=== PATIENT | female | born 1970 | race Caucasian/White ===

== ENCOUNTER 2019-10-10 19:54 | Emergency (ER) | payer MEDICAID ==
[~2019-10-10] VITALS: Ht 167.6 cm; Wt 60.0 kg
[2019-10-10 20:01] VITALS: BP 107/75
--- NOTE | 2019-10-10 20:35 | NUR ---
SECURITY CALLED PER PROVIDER REQUEST TO [facility].
== END 2019-10-10 20:42 | disposition home or self-care (01) ==
LOC: ED 19:55
DX: M79.604 Pain in right leg (principal)
CPT/HCPCS: 99281

== ENCOUNTER 2019-11-08 12:54 | Inpatient (IN) | payer MEDICAID ==
[~2019-11-08] VITALS: Ht 167.6 cm; Wt 62.2 kg
[2019-11-08 14:00] VITALS: BP 97/73
[2019-11-08] MEDS ORDERED: PLEASE ENTER HEIGHT AND WEIGHT MC SCH (14:23)
[2019-11-08] MEDS ORDERED: POLYETHYLENE GLYCOL 17 GM PACKET PO PRN (14:30)
[2019-11-08] MEDS ORDERED: THIAMINE 100MG TABLET PO ONE (15:00)
[2019-11-08 15:31] LABS: BASOPHILS # (AUTO) 0.05 x10^3/uL (0-0.1); BASOPHILS % (AUTO) 1 % (0-1); EOSINOPHILS # (AUTO) 0.11 x10^3/uL (0-0.4); EOSINOPHILS % (AUTO) 1 % (1-7); LYMPHOCYTES # (AUTO) 2.98 x10^3/uL (1-3.4); LYMPHOCYTES % (AUTO) 32 % (22-44); MD NO; MEAN CORPUSCULAR HEMOGLOBIN 30.9 pg (27.0-34.8); MEAN CORPUSCULAR HGB CONC 32.6 g/dL (32.4-35.8); MEAN CORPUSCULAR VOLUME 94.5 fL (80-100); MEAN PLATELET VOLUME 7.8 fL (7.4-10.4); MONOCYTES # (AUTO) 0.64 x10^3/uL (0.2-0.8); MONOCYTES % (AUTO) 7 % (2-9); NEUTROPHILS # (AUTO) 5.52 x10^3/uL (1.8-6.8); NEUTROPHILS % (AUTO) 59 % (42-75); PLATELET COUNT 326 x10^3/uL (130-400); RED BLOOD COUNT 4.45 x10^6/uL (3.82-5.3)
[2019-11-08 15:38] LABS: ALBUMIN 3.1 g/dL (3.4-5.0); ANION GAP 5 mmol/L (5-15); CALCIUM 8.6 mg/dL (8.5-10.1); CHLORIDE 106 mmol/L (98-107)
[2019-11-08 15:46] LABS: CHOL/HDL RATIO 3.8; LDL/HDL RATIO 1.5 (0.5-3.0)
[2019-11-08 16:05] LABS: ALANINE AMINOTRANSFERASE 89 U/L (12-78); ALKALINE PHOSPHATASE 96 U/L (45-117); BILIRUBIN,TOTAL 0.2 mg/dL (0.2-1.0); CREATININE 1.16 mg/dL (0.55-1.02); FREE T4 (FREE THYROXINE) 0.86 ng/dL (0.76-1.46); TOTAL PROTEIN 8.3 g/dL (6.4-8.2)
[2019-11-08] MEDS: NICOTINE 14MG/24 HR PATCH.TD24 TD SCH (16:31)
[2019-11-08 17:14] LABS: MICROSCOPIC NOT IND
[2019-11-08] MEDS ORDERED: FLUO20CA19 PO (17:26)
[2019-11-08] MEDS ORDERED: OLAN20TA3 PO (17:26)
[2019-11-08] MEDS ORDERED: DIVA250T4 PO (17:31)
[2019-11-08] MEDS ORDERED: TRAZ-175 PO (17:31)
[2019-11-08] MEDS: TRAZODONE 100MG TABLET PO SCH (20:03)
[2019-11-08] MEDS: ACETAMINOPHEN 325 MG TABLET PO PRN (20:03)
[2019-11-08] MEDS: DOCUSATE 100 MG CAPSULE PO PRN (20:03)
[2019-11-08 20:05] VITALS: BP 105/75
[2019-11-09 07:42] VITALS: BP 93/61
[2019-11-09] MEDS: MULTIVITAMINS/MINERALS TABLET PO SCH (09:56)
[2019-11-09] MEDS: ACETAMINOPHEN 325 MG TABLET PO PRN (10:02)
[2019-11-09] MEDS: DOCUSATE 100 MG CAPSULE PO PRN (10:02)
[2019-11-09] MEDS ORDERED: OLANZAPINE 10 MG TABLET PO ONE (15:00)
[2019-11-09] MEDS ORDERED: DIVALPROEX 250 MG TABLET.DR ONE (15:02)
[2019-11-09] MEDS ORDERED: OLANZAPINE 10 MG TABLET ONE (15:03)
[2019-11-09] MEDS ORDERED: FLUOXETINE HCL 20 MG CAPSULE ONE (15:03)
[2019-11-09] MEDS: DIVALPROEX 250 MG TABLET.DR PO SCH ×2 (15:06→20:15)
[2019-11-09] MEDS: FLUOXETINE HCL 20 MG CAPSULE PO SCH (15:06)
[2019-11-09] MEDS: NICOTINE 14MG/24 HR PATCH.TD24 TD SCH (15:07)
[2019-11-09 19:45] VITALS: BP 101/63
[2019-11-09] MEDS: OLANZAPINE 10 MG TABLET PO SCH (20:15)
[2019-11-09] MEDS: TRAZODONE 100MG TABLET PO SCH (20:15)
[2019-11-10 07:37] VITALS: BP 97/72
[2019-11-10] MEDS: MULTIVITAMINS/MINERALS TABLET PO SCH (08:16)
[2019-11-10] MEDS: DIVALPROEX 250 MG TABLET.DR PO SCH ×2 (08:16→20:10)
[2019-11-10] MEDS: FLUOXETINE HCL 20 MG CAPSULE PO SCH (08:16)
[2019-11-10 15:05] LABS: ALANINE AMINOTRANSFERASE 88 U/L (12-78); ANION GAP 4 mmol/L (5-15); CALCIUM 8.8 mg/dL (8.5-10.1); CHLORIDE 108 mmol/L (98-107); CREATININE 0.78 mg/dL (0.55-1.02)
[2019-11-10 15:07] LABS: ALKALINE PHOSPHATASE 87 U/L (45-117); BILIRUBIN,TOTAL 0.2 mg/dL (0.2-1.0); TOTAL PROTEIN 7.8 g/dL (6.4-8.2)
[2019-11-10] MEDS: NICOTINE 14MG/24 HR PATCH.TD24 TD SCH (16:10)
[2019-11-10 19:54] VITALS: BP 101/67
[2019-11-10] MEDS: OLANZAPINE 10 MG TABLET PO SCH (20:10)
[2019-11-10] MEDS: ACETAMINOPHEN 325 MG TABLET PO PRN (20:10)
[2019-11-10] MEDS: TRAZODONE 100MG TABLET PO SCH (20:10)
[2019-11-11 07:54] VITALS: BP 95/60
[2019-11-11] MEDS: FLUOXETINE HCL 20 MG CAPSULE PO SCH (09:31)
[2019-11-11] MEDS: MULTIVITAMINS/MINERALS TABLET PO SCH (09:31)
[2019-11-11] MEDS: DIVALPROEX 250 MG TABLET.DR PO SCH ×2 (09:31→20:18)
[2019-11-11] MEDS: NICOTINE 14MG/24 HR PATCH.TD24 TD SCH (16:51)
[2019-11-11] MEDS: ACETAMINOPHEN 325 MG TABLET PO PRN (19:30)
[2019-11-11 19:53] VITALS: BP 105/60
[2019-11-11] MEDS: OLANZAPINE 10 MG TABLET PO SCH (20:18)
[2019-11-11] MEDS: TRAZODONE 100MG TABLET PO SCH (20:18)
[2019-11-12 07:20] VITALS: BP 111/71
[2019-11-12] MEDS: MULTIVITAMINS/MINERALS TABLET PO SCH (08:40)
[2019-11-12] MEDS: DIVALPROEX 250 MG TABLET.DR PO SCH ×2 (08:40→20:38)
[2019-11-12] MEDS: FLUOXETINE HCL 20 MG CAPSULE PO SCH (08:40)
[2019-11-12] MEDS: NICOTINE 14MG/24 HR PATCH.TD24 TD SCH (17:11)
[2019-11-12] MEDS: HYDROXYZINE PAMOATE 50MG CAP PO PRN (17:11)
[2019-11-12 19:46] VITALS: BP 96/61
[2019-11-12] MEDS: TRAZODONE 100MG TABLET PO SCH (20:38)
[2019-11-12] MEDS: OLANZAPINE 10 MG TABLET PO SCH (20:38)
[2019-11-12] MEDS: ACETAMINOPHEN 325 MG TABLET PO PRN (20:38)
[2019-11-12 21:04] VITALS: BP 103/62
[2019-11-13 07:22] VITALS: BP 108/75
[2019-11-13] MEDS: HYDROXYZINE PAMOATE 50MG CAP PO PRN ×2 (09:06→17:13)
[2019-11-13] MEDS: FLUOXETINE HCL 20 MG CAPSULE PO SCH (09:06)
[2019-11-13] MEDS: MULTIVITAMINS/MINERALS TABLET PO SCH (09:06)
[2019-11-13] MEDS: DIVALPROEX 250 MG TABLET.DR PO SCH ×2 (09:06→20:46)
[2019-11-13] MEDS: ACETAMINOPHEN 325 MG TABLET PO PRN ×2 (09:07→20:46)
[2019-11-13] MEDS: NICOTINE 14MG/24 HR PATCH.TD24 TD SCH (16:06)
[2019-11-13 19:05] VITALS: BP 91/60
[2019-11-13] MEDS: OLANZAPINE 10 MG TABLET PO SCH (20:46)
[2019-11-13] MEDS: TRAZODONE 100MG TABLET PO SCH (20:46)
[2019-11-13 23:06] VITALS: BP 115/70
[2019-11-14 07:50] VITALS: BP 100/62
[2019-11-14] MEDS: DIVALPROEX 250 MG TABLET.DR PO SCH (08:16)
[2019-11-14] MEDS: FLUOXETINE HCL 20 MG CAPSULE PO SCH (08:16)
[2019-11-14] MEDS: MULTIVITAMINS/MINERALS TABLET PO SCH (08:16)
[2019-11-14] MEDS ORDERED: FLUO20CA23 PO (12:19)
[2019-11-14] MEDS ORDERED: HYDR50CA2 PO (12:19)
[2019-11-14] MEDS ORDERED: TRAZ-175 PO (12:19)
[2019-11-14] MEDS ORDERED: DIVA-59 PO (12:19)
[2019-11-14] MEDS ORDERED: NICO-486 TD (12:19)
[2019-11-14] MEDS ORDERED: OLAN10TA9 PO (12:19)
[2019-11-14] MEDS: NICOTINE 14MG/24 HR PATCH.TD24 TD SCH ×2 (15:00→15:12)
== END 2019-11-14 16:15 | disposition home or self-care (01) | DRG 750 ==
LOC: 3E 13:40
PROVIDERS: ADMIT Psychiatry & Neurology Psychosomatic Medicine; ATTEND Psychiatry & Neurology Psychosomatic Medicine
DX: F20.0 Paranoid schizophrenia (principal); F31.9 Bipolar disorder, unspecified; F17.200 Nicotine dependence, unspecified, uncomplicated; R45.851 Suicidal ideations; F15.90 Other stimulant use, unspecified, uncomplicated; F10.10 Alcohol abuse, uncomplicated
CPT/HCPCS: 36415; 71045; 76700; 80053; 80061; 81003; 82607; 84439; 84443; 85025

== ENCOUNTER 2020-08-22 19:35 | Observation (INO) | payer MEDICAID ==
[~2020-08-22] VITALS: Ht 167.6 cm; Wt 53.8 kg
[~2020-08-22 19:35] MED LIST: DIVA-59 PO; DIVA250T4 PO; FLUO20CA19 PO; FLUO20CA23 PO; HYDR50CA2 PO; NICO-486 TD; OLAN10TA9 PO; OLAN20TA3 PO; TRAZ-175 PO
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
[2020-08-22 21:00] LABS: BASOPHILS % (AUTO) 1 % (0-1); EOSINOPHILS % (AUTO) 1 % (1-7); LYMPHOCYTES % (AUTO) 30 % (22-44); MEAN CORPUSCULAR HEMOGLOBIN 31.5 pg (27.0-34.8); MEAN CORPUSCULAR HGB CONC 34.4 g/dL (32.4-35.8); MEAN PLATELET VOLUME 8.2 fL (7.4-10.4); MONOCYTES % (AUTO) 8 % (2-9); NEUTROPHILS % (AUTO) 60 % (42-75); PLATELET COUNT 392 x10^3/uL (130-400); RED BLOOD COUNT 4.64 x10^6/uL (3.82-5.3); RED CELL DISTRIBUTION WIDTH 13.6 % (9.6-15.2)
[2020-08-22 21:06] LABS: MD NO
--- NOTE | 2020-08-22 21:06 | NUR ---
SITTING IN BED TALKING TO SELF. SITTER IN PLACE.
[2020-08-22 21:11] LABS: ANION GAP 7 mmol/L (5-15); CALCIUM 9.5 mg/dL (8.5-10.1); CHLORIDE 104 mmol/L (98-107); CREATININE 1.34 mg/dL (0.55-1.02)
[2020-08-22 21:12] LABS: SALICYLATE LEVEL < 1.7 mg/dL (2.8-20.0)
[2020-08-22] MEDS ORDERED: ZIPRASIDONE 20 MG INJ IM ONE ×3 (21:56→23:00)
--- NOTE | 2020-08-22 22:03 | NUR ---
PT GETTING AGITATED, WALKING AROUND LEAVING ROOM. YA PER MAR IM. GIVEN CEREAL. COOPERATIVE.
--- NOTE | 2020-08-22 22:49 | NUR ---
report to lillie bee. as
--- NOTE | 2020-08-22 23:10 | NUR ---
Pt sleeping at this time, no acute distress noted. Room secured, sitter at doorway. Will cont to monitor.
--- NOTE | 2020-08-23 00:22 | NUR ---
Pt cont to sleep, no acute distress noted. Room secured and sitter at doorway.
--- NOTE | 2020-08-23 03:00 | NUR ---
Pt sleeping on [facility], sitter in doorway for observation. Will cont to monitor. Sitter informed of need of urine sampleif pt wakes up.
--- NOTE | 2020-08-23 04:03 | NUR ---
Pt easily awakens for vital signs, denies any needs at this time. Pt asked if she needed to use the restroom and pt rolled over on the gurney. Reminded pt of need of urine sample. VSS, door closed for comfort sleeping. Sitter at doorway.
--- NOTE | 2020-08-23 05:14 | NUR ---
[facility] RPT REC'D AND ASSUMED PT CARE. PT SLEEPING ON [facility]OSPITAL [place], RESP EVEN AND NON-LABORED, NAD NOTED. ROOM SECURE AND SITTER IN HALLWAY WITH PT IN DIRECT VIEW.
--- NOTE | 2020-08-23 06:00 | NUR ---
PT CONTINUES SLEEPING, RESP EVEN, NON-LABORED. SITTER IN HALLWAY WITH PT IN VIEW
--- NOTE | 2020-08-23 06:56 | NUR ---
REPORT RECEIVED FROM JARET DANG FOR TRANSFER OF PATIENT CARE.
--- NOTE | 2020-08-23 07:02 | NUR ---
PATIENT RESTING IN GURNEY, EYES CLOSED, RESP EVEN AND UNLABORED, SUICIDE PRECAUTIONS IN PLACE, SITTER IN LINE OF SIGHT.
--- NOTE | 2020-08-23 08:48 | NUR ---
URINE COLLECTED AND SENT TO LAB.
[2020-08-23 09:12] VITALS: BP 101/60
--- NOTE | 2020-08-23 09:13 | NUR ---
BREAKFAST TRAY PROVIDED TO PATIENT, VSS, SUICIDE PRECAUTIONS IN PLACE, SITTER IN LINE OF SIGHT.
--- NOTE | 2020-08-23 09:19 | NUR ---
PATIENT PLACED ON HOSPITAL BED.
--- NOTE | 2020-08-23 09:57 | NUR ---
WATER AND SNACKS PROVIDED TO PATIENT, SUICIDE PRECAUTIONS IN PLACE, SITTER IN LINE OF SIGHT.
--- NOTE | 2020-08-23 10:35 | NUR ---
PATIENT ASKING FOR HER CLOTHES, INFORMED PATIENT SHE CANNOT HAVE HER CLOTHES RIGHT NOW. PATIENT YELLED "NO CLOTHES RIGHT NOW," AND LAID ON THE HOSPITAL BED AND COVERED HER HEAD WITH HER BLANKET. SUICIDE PRECAUTIONS IN PLACE, SITTER IN LINE OF SIGHT.
--- NOTE | 2020-08-23 11:01 | NUR ---
PATIENT SCREAMING THAT SHE WANTS HER CLOTHES, INFORMED PATIENT WE CAN'T GIVE HER CLOTHES BACK AT THIS TIME. PATIENT SCREAMING AND CRYING, ASKED PATIENT IF SHE WOULD LIKE A SPRITE, PROVIDED PATIENT WITH SPRITE AND PATIENT CALMED DOWN. SITTER IN LINE OF SIGHT.
[2020-08-23] MEDS ORDERED: ZIPRASIDONE 20 MG INJ IM ONE ×2 (11:05→11:30)
--- NOTE | 2020-08-23 11:12 | NUR ---
PATIENT SCREAMING THAT SHE WANTS HER CLOTHES, PATIENT UNCOSOLABLE, YELLING AT SITTER. PATIENT MEDICATED PER eMAR.
--- NOTE | 2020-08-23 12:16 | NUR ---
PATIENT RESTING IN HOSPITAL BED WITH EYES CLOSED, RESP EVEN AND UNLABORED, SUICIDE PRECAUTIONS IN PLACE, SITTER IN LINE OF SIGHT.
[2020-08-23] MEDS ORDERED: OLANZAPINE 10 MG INJ IM PRN (12:30)
[2020-08-23] MEDS ORDERED: FLUOXETINE 10 MG CAP PO SCH (12:30)
[2020-08-23] MEDS ORDERED: hydrOXyzine 50MG TABLET PO PRN (12:30)
--- NOTE | 2020-08-23 12:57 | NUR ---
LUNCH TRAY PROVIDED TO PATIENT, PATIENT SLEEPING AT THIS TIME.
--- NOTE | 2020-08-23 13:03 | NUR ---
SPOKE WITH LAB, URINE NOT RESULTED YET AND WAS SENT AT 0848 THIS MORNING. REAL ESTATE LEASING MANAGER STATES URINE NEVER RECEIVED. NEED TO RECOLLECT URINE.
--- NOTE | 2020-08-23 13:08 | NUR ---
URINE SAMPLE TAKEN FROM URINE LEFT THIS MORNING AND RESENT TO LAB.
--- NOTE | 2020-08-23 13:34 | NUR ---
PATIENT RESTING IN HOSPITAL BED, EYES CLOSED, RESP EVEN AND UNLABORED, SUICIDE PRECAUTIONS IN PLACE, SITTER IN LINE OF SIGHT.
--- NOTE | 2020-08-23 14:03 | NUR ---
SPOKE WITH LAB AGAIN ABOUT URINE, ONLY TOX SCREEN IS RUNNING, UA WAS ORDERED LAST NIGHT WELL. LAB WILL RUN UA.
[2020-08-23 14:05] LABS: AMPHETAMINE SCREEN, URINE Positive (Negative); BARBITURATE SCREEN, URINE Negative (Negative); BENZODIAZEPINE SCREEN, URINE Negative (Negative); CANNABINOID SCREEN, URINE Negative (Negative); COCAINE SCREEN, URINE Positive (Negative); METHADONE SCREEN, URINE Negative (Negative); OPIATE SCREEN, URINE Negative (Negative)
[2020-08-23 14:26] LABS: MICROSCOPIC INDICATED
--- NOTE | 2020-08-23 14:59 | NUR ---
PATIENT RESTING IN HOSPITAL BED WITH EYES CLOSED, RESP EVEN AND UNLABORED, SUICIDE PRECAUTIONS IN PLACE, SITTER IN LINE OF SIGHT.
[2020-08-23] MEDS ORDERED: FLUOXETINE HCL 20 MG CAPSULE ONE (15:07)
--- NOTE | 2020-08-23 15:13 | NUR ---
PATIENT SITTING UP IN [facility] EATING LUNCH TRAY, MEDICATED PER eMAR, SUICIDE PRECAUTIONS IN PLACE, SITTER IN LINE OF SIGHT.
--- NOTE | 2020-08-23 15:19 | NUR ---
EKATERINA GOLDMAN AT BEDSIDE FOR EVALUATION.
[2020-08-23] MEDS ORDERED: FLUO10CA15 PO (15:49)
[2020-08-23] MEDS ORDERED: OLAN5TAB9 PO (15:49)
[2020-08-23] MEDS ORDERED: DIVA-59 PO (15:49)
--- NOTE | 2020-08-23 16:16 | NUR ---
PATIENT RESTING IN HOSPITAL BED, EYES CLOSED, RESP EVEN AND UNLABORED, SUICIDE PRECAUTIONS IN PLACE, SITTER IN LINE OF SIGHT. WAITING FOR DISHCHARGE PAPERWORK.
--- NOTE | 2020-08-23 16:48 | NUR ---
L2K d/c'd. Patient given discharge instructions and prescriptions and they have confirmed that they understand the instructions. All patient belongings taken from locked cabinet and taken with patient. Patient stable and ambulatory with steady gait from ED.
[2020-08-23] MEDS ORDERED: DIVALPROEX 250 MG TABLET.DR PO SCH (21:00)
[2020-08-23] MEDS ORDERED: OLANZAPINE 5 MG TABLET PO SCH (21:00)
== END 2020-08-23 15:51 | disposition home or self-care (01) ==
LOC: ED 21:14 → EDIP 08-23 03:10 → INTOOBSV 08-23 03:21 → UNDOADMOB 08-23 03:21 → EDIP 08-23 03:21
PROVIDERS: ADMIT Emergency Medicine; ATTEND Emergency Medicine
DX: F20.0 Paranoid schizophrenia (principal); F32.9 Major depressive disorder, single episode, unspecified; F17.200 Nicotine dependence, unspecified, uncomplicated; R45.851 Suicidal ideations; F14.90 Cocaine use, unspecified, uncomplicated; F15.90 Other stimulant use, unspecified, uncomplicated; F20.1 Disorganized schizophrenia; Z91.14 Patient's other noncompliance with medication regimen; Z59.0 Homelessness; Z79.899 Other long term (current) drug therapy
CPT/HCPCS: 36415; 80048; 80299; 80307; 80320; 80329; 81001; 82040; 85025; 96372; 99284; G0378; J3486; 99285; G0480

== ENCOUNTER 2020-10-12 07:55 | Inpatient (IN) | payer MEDICAID ==
[~2020-10-12] VITALS: Ht 162.6 cm; Wt 61.3 kg
[~2020-10-12 07:55] MED LIST changes: +FLUO10CA15 PO; +OLAN5TAB9 PO
[2020-10-12] MEDS ORDERED: ONDANSETRON ODT 4 MG PO PRN (10:00)
[2020-10-12] MEDS ORDERED: POLYETHYLENE GLYCOL 17 GM PACKET PO PRN (10:00)
[2020-10-12] MEDS ORDERED: BISACODYL 10 MG SUPP PR PRN (10:00)
[2020-10-12] MEDS ORDERED: PLEASE ENTER HEIGHT AND WEIGHT MC SCH (11:30)
[2020-10-12] MEDS ORDERED: NICOTINE 14MG/24 HR PATCH.TD24 ONE (11:53)
[2020-10-12] MEDS: NICOTINE 14MG/24 HR PATCH.TD24 TD SCH (11:55)
[2020-10-12 12:30] VITALS: BP 113/71
[2020-10-12 12:55] LABS: BASOPHILS % (AUTO) 1 % (0-1); EOSINOPHILS % (AUTO) 2 % (1-7); LYMPHOCYTES % (AUTO) 37 % (22-44); MEAN CORPUSCULAR HEMOGLOBIN 31.7 pg (27.0-34.8); MONOCYTES % (AUTO) 4 % (2-9); NEUTROPHILS % (AUTO) 56 % (42-75); PLATELET COUNT 279 x10^3/uL (130-400); RED BLOOD COUNT 4.31 x10^6/uL (3.82-5.3); RED CELL DISTRIBUTION WIDTH 13.9 % (9.6-15.2)
[2020-10-12 13:01] LABS: ALANINE AMINOTRANSFERASE 73 U/L (12-78); ALBUMIN 3.2 g/dL (3.4-5.0); ANION GAP 9 mmol/L (5-15); CALCIUM 8.3 mg/dL (8.5-10.1); CHLORIDE 109 mmol/L (98-107); CREATININE 1.14 mg/dL (0.55-1.02)
[2020-10-12 13:11] LABS: ALKALINE PHOSPHATASE 74 U/L (45-117); BILIRUBIN,TOTAL 0.3 mg/dL (0.2-1.0); FREE T4 (FREE THYROXINE) 0.79 ng/dL (0.76-1.46); TOTAL PROTEIN 7.9 g/dL (6.4-8.2)
[2020-10-12] MEDS ORDERED: HYDR50CA PO (15:18)
[2020-10-12] MEDS ORDERED: FLUO10CA13 PO (15:18)
[2020-10-12] MEDS ORDERED: SERT50TA PO (15:18)
[2020-10-12] MEDS ORDERED: OLAN10TA3 PO (15:18)
[2020-10-12] MEDS ORDERED: ERGO500017 PO (15:18)
[2020-10-12] MEDS ORDERED: TRAZ-175 PO (15:18)
[2020-10-12] MEDS ORDERED: ERGOCALCIFEROL 50,000 UNIT CAPSULE PO SCH (16:00)
[2020-10-12] MEDS: HYDROXYZINE PAMOATE 50MG CAP PO PRN (16:53)
[2020-10-12 19:35] VITALS: BP 100/70
[2020-10-12] MEDS: OLANZAPINE 10 MG TABLET PO SCH (20:24)
[2020-10-12] MEDS: ACETAMINOPHEN 325 MG TABLET PO PRN (20:24)
[2020-10-12] MEDS: TRAZODONE 100MG TABLET PO PRN (20:50)
[2020-10-13 06:05] LABS: CHOL/HDL RATIO 2.9; LDL/HDL RATIO 1.6 (0.5-3.0)
[2020-10-13 07:33] VITALS: BP 92/63
[2020-10-13] MEDS: FLUOXETINE 10 MG CAP PO SCH (08:33)
[2020-10-13] MEDS: NICOTINE 14MG/24 HR PATCH.TD24 TD SCH (08:34)
[2020-10-13 09:35] LABS: MICROSCOPIC NOT IND
[2020-10-13] MEDS: HYDROXYZINE PAMOATE 50MG CAP PO PRN (19:56)
[2020-10-13] MEDS: DOCUSATE 100 MG CAPSULE PO PRN (19:56)
[2020-10-13] MEDS: OLANZAPINE 10 MG TABLET PO SCH (19:57)
[2020-10-13] MEDS: ACETAMINOPHEN 325 MG TABLET PO PRN (19:57)
[2020-10-13 20:01] VITALS: BP 97/65
[2020-10-14 07:44] VITALS: BP 106/74
[2020-10-14] MEDS: FLUOXETINE 10 MG CAP PO SCH (09:09)
[2020-10-14] MEDS: NICOTINE 14MG/24 HR PATCH.TD24 TD SCH (09:11)
[2020-10-14] MEDS: DOCUSATE 100 MG CAPSULE PO PRN (09:43)
[2020-10-14] MEDS: HYDROXYZINE PAMOATE 50MG CAP PO PRN ×2 (09:43→20:10)
[2020-10-14] MEDS: ACETAMINOPHEN 325 MG TABLET PO PRN ×2 (09:43→17:18)
[2020-10-14 19:31] VITALS: BP 102/69
[2020-10-14] MEDS: OLANZAPINE 10 MG TABLET PO SCH (20:11)
[2020-10-15 07:32] LABS: ANION GAP 5 mmol/L (5-15); CALCIUM 9.4 mg/dL (8.5-10.1); CHLORIDE 110 mmol/L (98-107); CREATININE 0.87 mg/dL (0.55-1.02)
[2020-10-15 07:36] VITALS: BP 140/84
[2020-10-15] MEDS: NICOTINE 14MG/24 HR PATCH.TD24 TD SCH (08:34)
[2020-10-15] MEDS: FLUOXETINE 10 MG CAP PO SCH (08:34)
[2020-10-15 20:10] VITALS: BP 105/72
[2020-10-15] MEDS: OLANZAPINE 10 MG TABLET PO SCH (21:07)
[2020-10-15] MEDS: ACETAMINOPHEN 325 MG TABLET PO PRN (21:07)
[2020-10-15] MEDS: HYDROXYZINE PAMOATE 50MG CAP PO PRN (21:07)
[2020-10-16 07:26] VITALS: BP 97/64
[2020-10-16] MEDS: FLUOXETINE 10 MG CAP PO SCH (08:42)
[2020-10-16] MEDS: NICOTINE 14MG/24 HR PATCH.TD24 TD SCH (08:43)
[2020-10-16] MEDS ORDERED: COVID-19 VAC,AD26(JANSSEN)/PF 0.5ML IM-VACC ONE (14:30)
[2020-10-16] MEDS: ACETAMINOPHEN 325 MG TABLET PO PRN (18:26)
[2020-10-16 19:35] VITALS: BP 110/74
[2020-10-16] MEDS: OLANZAPINE 10 MG TABLET PO SCH (20:45)
[2020-10-16] MEDS: TRAZODONE 100MG TABLET PO PRN (20:52)
[2020-10-17 07:14] VITALS: BP 98/64
[2020-10-17] MEDS: HYDROXYZINE PAMOATE 50MG CAP PO PRN ×2 (08:01→13:35)
[2020-10-17] MEDS: NICOTINE 14MG/24 HR PATCH.TD24 TD SCH (08:01)
[2020-10-17] MEDS: FLUOXETINE 10 MG CAP PO SCH (08:01)
[2020-10-17] MEDS: ACETAMINOPHEN 325 MG TABLET PO PRN ×2 (13:35→20:37)
[2020-10-17 19:41] VITALS: BP 104/72
[2020-10-17] MEDS: OLANZAPINE 10 MG TABLET PO SCH (20:37)
[2020-10-17] MEDS: TRAZODONE 100MG TABLET PO PRN (20:37)
[2020-10-18 07:28] VITALS: BP 99/58
[2020-10-18] MEDS: FLUOXETINE 10 MG CAP PO SCH (08:27)
[2020-10-18] MEDS: NICOTINE 14MG/24 HR PATCH.TD24 TD SCH (08:27)
[2020-10-18] MEDS: HYDROXYZINE PAMOATE 50MG CAP PO PRN (11:44)
[2020-10-18] MEDS: ACETAMINOPHEN 325 MG TABLET PO PRN (11:44)
[2020-10-18] MEDS ORDERED: ERGO500017 PO (14:23)
[2020-10-18] MEDS ORDERED: HYDR50CA2 PO (14:23)
[2020-10-18] MEDS ORDERED: NICO-486 TD (14:23)
[2020-10-18] MEDS ORDERED: FLUO10CA15 PO (14:23)
[2020-10-18] MEDS ORDERED: TRAZ-175 PO (14:23)
[2020-10-18] MEDS ORDERED: OLAN10TA9 PO (14:23)
== END 2020-10-18 15:30 | disposition home or self-care (01) | DRG 885 ==
LOC: 3E 11:10
PROVIDERS: ADMIT Psychiatry & Neurology Psychosomatic Medicine; ATTEND Psychiatry & Neurology Psychosomatic Medicine
DX: F25.0 Schizoaffective disorder, bipolar type (principal); E87.2 Acidosis; R45.851 Suicidal ideations; F15.20 Other stimulant dependence, uncomplicated; E86.0 Dehydration; F41.9 Anxiety disorder, unspecified; Z79.899 Other long term (current) drug therapy; Z90.49 Acquired absence of other specified parts of digestive tract; Z23 Encounter for immunization
CPT/HCPCS: 36415; 71045; 80048; 80053; 80061; 81003; 84439; 84443; 85025; 91303; 93005

== ENCOUNTER 2020-10-21 19:20 | Emergency (ER) | payer MEDICAID ==
[~2020-10-21] VITALS: Ht 162.6 cm; Wt 65.0 kg
[~2020-10-21 19:20] MED LIST changes: +ERGO500017 PO; +FLUO10CA13 PO; +HYDR50CA PO; +OLAN10TA3 PO; +SERT50TA PO
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
[2020-10-21 19:54] LABS: AMPHETAMINE SCREEN, URINE Positive (Negative); BARBITURATE SCREEN, URINE Negative (Negative); BENZODIAZEPINE SCREEN, URINE Negative (Negative); CANNABINOID SCREEN, URINE Negative (Negative); COCAINE SCREEN, URINE Negative (Negative); METHADONE SCREEN, URINE Negative (Negative); OPIATE SCREEN, URINE Negative (Negative)
[2020-10-21 19:55] LABS: BASOPHILS % (AUTO) 1 % (0-1); EOSINOPHILS % (AUTO) 0 % (1-7); LYMPHOCYTES % (AUTO) 18 % (22-44); MEAN CORPUSCULAR HEMOGLOBIN 31.1 pg (27.0-34.8); MEAN CORPUSCULAR HGB CONC 34.4 g/dL (32.4-35.8); MEAN PLATELET VOLUME 7.5 fL (7.4-10.4); MONOCYTES % (AUTO) 6 % (2-9); NEUTROPHILS % (AUTO) 76 % (42-75); PLATELET COUNT 344 x10^3/uL (130-400); RED BLOOD COUNT 4.13 x10^6/uL (3.82-5.3); RED CELL DISTRIBUTION WIDTH 13.8 % (9.6-15.2)
[2020-10-21 20:05] LABS: ALANINE AMINOTRANSFERASE 130 U/L (12-78); ANION GAP 15 mmol/L (5-15); CALCIUM 9.3 mg/dL (8.5-10.1); CHLORIDE 99 mmol/L (98-107); CREATININE 1.66 mg/dL (0.55-1.02)
[2020-10-21 20:08] LABS: ALKALINE PHOSPHATASE 102 U/L (45-117); BILIRUBIN,TOTAL 1.7 mg/dL (0.2-1.0); TOTAL PROTEIN 9.6 g/dL (6.4-8.2)
[2020-10-21 20:10] LABS: SALICYLATE LEVEL < 1.7 mg/dL (2.8-20.0)
--- NOTE | 2020-10-21 21:27 | NUR ---
PT RESTING COMFORTABLY ON GURNEY, SITTER AT BEDSIED, ROOM SECURE, PT DENIES NEEDS AT THIS TIME.
--- NOTE | 2020-10-21 21:30 | NUR ---
PT RESTING ON GURNEY, DENIES NEEDS AT THIS TIME, SITTER AT BEDSIDE, ROOM SECURED
--- NOTE | 2020-10-21 22:47 | NUR ---
PT RESTING ON GURNEY, DENIES NEEDS AT THIS TIME, SITTER AT BEDSIDE, ROOM SECURED
--- NOTE | 2020-10-21 23:22 | NUR ---
PT RESTING ON GURNEY, DENIES NEEDS AT THIS TIME, SITTER AT BEDSIDE, ROOM SECURED
--- NOTE | 2020-10-22 00:30 | NUR ---
PT RESTING ON GURNEY, DENIES NEEDS AT THIS TIME, SITTER AT BEDSIDE, ROOM SECURED.
[2020-10-22 01:28] VITALS: BP 107/76
--- NOTE | 2020-10-22 01:36 | NUR ---
PT RESTING ON GURNEY, DENIES NEEDS AT THIS TIME, SITTER AT BEDSIDE, ROOM SECURED.
--- NOTE | 2020-10-22 02:19 | NUR ---
Discharge instructions given. Patient has no desire to be educated. Patient ambulatory with a steady gait. Belongings with patient.
== END 2020-10-22 02:21 | disposition home or self-care (01) ==
LOC: ED 20:36
DX: F15.10 Other stimulant abuse, uncomplicated (principal); Z72.9 Problem related to lifestyle, unspecified; F17.210 Nicotine dependence, cigarettes, uncomplicated
CPT/HCPCS: 36415; 80053; 80299; 80307; 80320; 80329; 85025; 99406; G0480